=== PATIENT | male | born 1935 | race African-American/Black ===

== ENCOUNTER 2018-09-18 09:00 | Inpatient (IN) | payer MEDICARE ==
[2018-09-18] MEDS ORDERED: Enoxaparin Sodium 100 MG/ML SYRINGE ONE (10:29)
--- NOTE | 2018-09-18 10:30 | ULT ---
EXAM: Bilateral lower extremity venous Doppler PROVIDED CLINICAL HISTORY: Dyspnea FINDINGS: Grayscale and color Doppler sonography with spectral analysis was performed of the common femoral, fe moral, popliteal, posterior tibial, greater saphenous and profunda femoral veins bilaterally. There is noncompressibility involving the left femoral vein and partial noncompressibility involving the po pliteal vein. The evaluated venous structures demonstrate an otherwise normal sonographic appearance. IMPRESSION: Positive for left lower extremity deep venous thrombosis..
[2018-09-18] MEDS ORDERED: predniSONE 20 MG TAB PO SCH (12:30)
[2018-09-18] MEDS ORDERED: Diazepam 5 MG TAB PO PRN (15:32)
[2018-09-18] MEDS ORDERED: Carvedilol 25 MG TAB PO SCH (16:15)
[2018-09-18] MEDS ORDERED: Amlodipine 5 MG TAB PO SCH (16:15)
[2018-09-18] MEDS: Lovastatin 20 MG TAB PO SCH (16:19)
--- NOTE | 2018-09-18 17:04 | CON ---
DATE OF CONSULTATION: 09/18/2018 SERVICE: Pulmonary Medicine. INTERVAL HISTORY: The patient is doing fine from Respiratory standpoint. He came into the hospital, because he had multiple episodes of syncope. He woke up this morning, feeling pretty good. He had increasing lower extremity swelling going on for a couple of days. Last week, he felt like he had a flu-like syndrome. That being said, he completely recovered from that by this morning. He had 3 distinct episodes of complete pass out. As such, he was brought to the Emergency Department by Emergency Services. He denies any current fevers, chills, nausea, vomiting, cough, or sputum production. He is not having any hot, red, swollen joints, or any rashes. He is having increasing swelling in his legs. PAST MEDICAL HISTORY: 1. Chronic kidney disease. 2. Gout. 3. Coronary artery disease. 4. Hypertension. 5. Dyslipidemia. 6. Type 2 diabetes mellitus. 7. Neuropathy. 8. History of transient ischemic attacks. 9. COPD. 10. Chronic hypoxic respiratory failure. PAST SURGICAL HISTORY: 1. Cataract surgery, bilateral. 2. Back surgery. 3. Left shoulder surgery. 4. Right hip replacement. SOCIAL HISTORY: Negative for alcohol, tobacco, or illicit drug use currently. He has no exposure to chemicals, dust, asbestos, or tuberculosis. He has a remote history of smoking, but quit over 10 years ago. FAMILY HISTORY: Noncontributory. ALLERGIES: NO KNOWN DRUG ALLERGIES. MEDICATIONS: List of his inpatient medications as well as outpatient medications were reviewed. He has no specific updates were made at this time. REVIEW OF SYSTEMS: General, head, ears, eyes, nose, throat, cardiovascular, respiratory, GI, , musculoskeletal, neurologic, and skin is negative except as mentioned in the HPI. PHYSICAL EXAMINATION: VITAL SIGNS: Afebrile, pulse 72, respirations 19, and saturation 98% on room air. GENERAL: The patient is awake and alert, in no apparent distress. LUNGS: Reduced air entry. There is a prolonged expiratory phase. I do not appreciate wheezing or crackles. HEART: Normal rate and regular. ABDOMEN: Soft, nontender, and nondistended. Bowel sounds are positive. EXTREMITIES: No cyanosis or clubbing. There is 2+ pitting in the bilateral lower extremities. NEUROLOGIC: Grossly nonfocal. LABORATORY DATA: WBC 6.8, hemoglobin 10.1, and platelets 238,000. Creatinine 3.36 over baseline of 3.1. Basic metabolic profile and liver function studies are otherwise unremarkable. Troponin is negative x1. IMAGING STUDIES: Ultrasound of the bilateral lower extremities demonstrates evidence of DVT. ASSESSMENT: 1. Acute on chronic hypoxic respiratory failure. 2. Deep venous thrombosis. 3. Syncope, multiple episodes, possibly secondary to pulmonary embolism. 4. Chronic obstructive pulmonary disease without current exacerbation. DISCUSSION AND PLAN: We will schedule nebulized medications for the patient. We will put him on anticoagulation. We will repeat laboratories tomorrow morning including a troponin, and BNP. If there is any significant signs of right ventricular heart strain, additional therapies may be considered. Pulmonary/Critical Care will continue to follow very closely while the patient remains inhouse. 70 minutes have been devoted to this patient in various activities. I personally reviewed all imaging studies and laboratory data noted within this document. For fifty percent of this time, I was interacting with the patient at the bedside or coordinating care with the care team. For the remainder of the time I was immediately available to the patient in the hospital unit. Job ID: [id number] [email or web address]
[2018-09-18] MEDS: Carvedilol 25 MG TAB PO SCH (20:44)
[2018-09-18] MEDS: Gabapentin 300 MG CAP PO SCH (20:44)
[2018-09-18] MEDS: Doxycycline 100 MG CAP PO SCH (20:44)
[2018-09-18] MEDS: Apixaban 5 MG TAB PO SCH (20:44)
[2018-09-19] MEDS: Acetaminophen 325 MG TAB PO PRN ×2 (03:26→15:58)
[2018-09-19 04:33] LABS: #Lymphocytes 0.7 thou/uL (1.20-3.40); #Monocytes 0.1 thou/uL (0.11-0.59); #Neutrophils 5.6 thou/uL (1.40-6.50); %Basophils 0.2 % (0.0-1.0); %Eosinophils 0.4 % (0.0-10.0); %Lymphocytes 10.1 % (21.0-51.0); %Monocytes 1.9 % (0.0-10.0); %Neutrophils 87.3 % (42.0-75.0); Hemoglobin 10.7 g/dL (14.0-18.0); Mean Corpuscular HGB CONC 30.1 g/dL (32.0-36.0); Mean Corpuscular Hemoglobin 28.4 pg (27.0-31.0); Mean Corpuscular Volume 94.3 fL (78.0-98.0); Mean Platelet Volume 8.3 fL (7.4-10.4); Platelet Count 204 thou/uL (130-400); RBC Distribution Width 14.2 % (11.5-14.5); Red Blood Cell (RBC) Count 3.77 mill/uL (4.70-6.10); White Blood Cell (WBC) Count 6.4 thou/uL (4.8-10.8)
[2018-09-19 04:54] LABS: Anion Gap 14 mmol/L (10-20); BUN (Urea Nitrogen) 47 mg/dL (8.4-25.7); Calc. Creatinine Clearance 33 mL/min (70-130); Calcium 9.8 mg/dL (7.8-10.44); Carbon Dioxide 27 mmol/L (23-31); Chloride 103 mmol/L (98-107); Estimated GFR-MDRD 31; Glucose 132 mg/dL (83-110); Magnesium 2.3 mg/dL (1.6-2.6); Potassium 4.7 mmol/L (3.5-5.1); Sodium 139 mmol/L (136-145)
[2018-09-19 04:55] LABS: Phosphorus 3.8 mg/dL (2.3-4.7)
[2018-09-19] MEDS: predniSONE 20 MG TAB PO SCH (08:34)
[2018-09-19] MEDS: Apixaban 5 MG TAB PO SCH (08:35)
[2018-09-19] MEDS: Amlodipine 5 MG TAB PO SCH (08:35)
[2018-09-19] MEDS: Aspirin 81 mg Enteric Coated Tablet PO SCH (08:36)
[2018-09-19] MEDS: Calcitriol 0.25 MCG CAP PO SCH (08:36)
[2018-09-19] MEDS: Doxycycline 100 MG CAP PO SCH ×2 (08:36→21:19)
[2018-09-19] MEDS: PARoxetine 20 MG TAB PO SCH (08:36)
[2018-09-19] MEDS: Carvedilol 25 MG TAB PO SCH ×2 (08:36→21:16)
--- NOTE | 2018-09-19 10:09 | HP ---
CHIEF COMPLAINT: Shortness of breath/syncope. HISTORY OF PRESENT ILLNESS: The patient is an 83-year-old male, who resides at home, stated that he woke up around 3:30 on September 19, went to his living room and had a syncopal episode per the patient. The patient states that he is also having gradually shortness of breath on exertion for the past week, which has worsened today. The patient denies any fevers or chills, any chest pain or chest pressure, any nausea, vomiting, or diarrhea. The patient is unable to really tell me if he really syncopized, however, states that when he woke up, he was in the chair. His ex- helped him to the bed and apparently he syncopized again with EMS, however, I do not see any records of that. The patient was brought initially to the [facility] and then was transferred here for further evaluation. In the ED, the patient was found to have an elevated D-dimer for which he did undergo lower extremity ultrasound, which indicated DVT, and was admitted to the hospital. The patient states that he is on Coumadin, however, his INR is 1. I do not believe this patient knows any significant details about his medical history. PAST MEDICAL HISTORY: 1. He has a history of neuropathy. 2. History of chronic renal failure. 3. Gout. 4. Heart disease with stent placement. 5. He is a type 2 diabetic. 6. History of COPD, I believe. PAST SURGICAL HISTORY: 1. The patient has had cataract surgery bilaterally. 2. Back surgery. 3. Right hip surgery. 4. Left shoulder surgery. SOCIAL HISTORY: He denies any alcohol use, drug use, or smoking history. He normally uses cigars. He lives with his ex- and is currently full code. FAMILY HISTORY: No history of heart disease or cancer. ALLERGIES: HE HAS NO KNOWN DRUG ALLERGIES. MEDICATIONS: Medications are as of the following; 1. He is on carvedilol 12.5 b.i.d. 2. Diazepam 5 mg q.24 hours p.r.n. 3. He is on calcitriol 0.5 p.o. daily. 4. Amlodipine 2.5 mg daily. 5. He is on Protonix 40 mg daily. 6. Pravastatin 20 mg daily. REVIEW OF SYSTEMS: All negative except for the ones mentioned above in HPI. PHYSICAL EXAMINATION: VITAL SIGNS: Are as of the following; temperature of 97.6, 71, 16, and 93% on 4 L of oxygen. GENERAL: He is awake, alert, and oriented x3. Does not appear in any distress. HEENT: Normocephalic, atraumatic. No lymphadenopathy noted. Pupils are equal and reactive to light. CV: S1 and S2 present. No murmurs, rubs, or gallops. LUNGS: Clear to auscultation. No rhonchi or wheezes noted. ABDOMEN: Soft and obese. Bowel sounds are present x2. EXTREMITIES: Mild +1 lower extremity edema. Pedal pulses are present bilaterally. NEUROLOGIC: No focal deficits noted. SKIN: No cuts, lesions, or bruises noted. LABORATORY RESULTS: As of the following; the patient's D-dimer was elevated, I believe, at 1.9. His BNP was 390. His troponins were 0.02. His INR was 1.0. His WBCs were 6.6, hemoglobin of 9.8, and hematocrit of 33.6 with platelets of 209. His creatinine was 3.37 and his BUN was 57. IMAGING STUDIES: He also had a lower extremity venogram, which indicated positive left lower extremity DVT, unable to do a CTA due to elevated creatinine. ASSESSMENT AND PLAN: The patient is an 83-year-old male, who comes to the hospital with complaints of shortness of breath. 1. Shortness of breath could be secondary to pulmonary embolism versus acute on chronic heart failure. The patient has never had an echocardiogram here, so we will order an echocardiogram. We will continue anticoagulation on this patient. His troponins x2 were negative. The patient initially was on Ventimask and he has downgraded to oxygen nasal cannula. He normally uses 3 L to 4 L on a regular basis. Also, the patient will be seen by Pulmonary. He does have an underlying history of chronic obstructive pulmonary disease that was mentioned in the notes. The patient was really unable to tell me this information. He is currently on some steroids and also prophylaxis antibiotic. We will also continue DuoNeb on this patient. I will also get records from Dr. Swartz on Thursday. 2. Chronic kidney disease, stage 4. We will continue to monitor. 3. Possible mild heart failure. The patient's BNP was elevated. We will see what the echocardiogram shows may be the patient will benefit from mild diuretic. 4. Hypertension. We will continue his home medications. 5. Hyperlipidemia. We will continue his home medication. 6. Deep venous thrombosis prophylaxis. The patient is already on Eliquis. Job ID: [id number]
[2018-09-19] MEDS ORDERED: Furosemide 40 MG/4 ML VIAL SLOW IVP SCH (11:30)
--- NOTE | 2018-09-19 12:07 | PRG ---
DATE OF SERVICE: 09/19/2018 SERVICE: Pulmonary Medicine. INTERVAL HISTORY: The patient is doing really well from respiratory standpoint. He is breathing comfortably. He has no complaints of chest pain, fevers, cough, nausea, vomiting, or shortness of breath. Overnight, he had no significant events. PHYSICAL EXAMINATION: VITAL SIGNS: Afebrile, pulse 71, blood pressure 150/87, respirations 20, saturation is 97%, currently on 3 L nasal cannula. GENERAL: The patient is awake and alert, in no apparent distress. LUNGS: Decent air entry. There is a decreased air entry. There is a prolonged expiratory phase. Wheezing and crackles are both evident. No rhonchi. HEART: Normal rate, regular. ABDOMEN: Soft, nontender, and nondistended. Bowel sounds are positive. MUSCULOSKELETAL: No cyanosis or clubbing. No pitting in the bilateral lower extremities. NEUROLOGIC: Grossly nonfocal. LABORATORY DATA: Creatinine 2.43, at baseline. Basic metabolic profile is otherwise unremarkable. BNP is 809 and gently uptrending. Troponin is negative. ASSESSMENT: 1. Acute on chronic hypoxic respiratory failure. 2. Deep vein thrombosis. 3. Syncope, multiple episodes, possibly secondary to pulmonary embolism. 4. Chronic obstructive pulmonary disease without current exacerbation. DISCUSSION AND PLAN: The patient can be transitioned out of the ICU to the telemetry unit. I will repeat a BNP tomorrow morning in conjunction with the troponin. As long as these things are downtrending, we will continue our supportive measures. If they are uptrending, a V/Q scan and tPA will be considered. We are awaiting the results of the echocardiogram which has been taken. Job ID: [id number]
[2018-09-19] MEDS: Lovastatin 20 MG TAB PO SCH (15:58)
--- NOTE | 2018-09-19 19:45 | PDOC.PN ---
- Subjective Encounter Start Date: 09/19/18 Encounter Start Time: 08:45 Subjective: pt up in bed no complains - Objective Vital Signs & Weight: Vital Signs (12 hours) Temp Pulse Resp Pulse Ox 09/19/18 19:28 86 20 92 L 09/19/18 15:28 97.8 F 09/19/18 14:14 78 19 94 L 09/19/18 11:09 97.9 F 09/19/18 08:35 71 09/19/18 07:53 71 16 93 L Weight Weight 222 lb 4 oz Most Recent Monitor Data Heart Rate from ECG 81 NIBP 161/97 NIBP BP-Mean 118 Respiration from ECG 15 SpO2 93 I&O: 09/18/18 09/19/18 09/20/18 06:59 06:59 06:59 Intake Total 1330 900 Output Total 1375 1800 Balance -45 -900 Result Diagrams: 09/19/18 03:50 09/19/18 03:50 Additional Labs: Accuchecks 09/19/18 09/19/18 09/19/18 16:45 10:38 05:13 POC Glucose 141 H 188 H 130 H 09/18/18 20:27 POC Glucose 155 H Phys Exam - Physical Examination Neck: no nodes, no JVD, supple, full ROM Respiratory: no wheezing, no rales, no rhonchi, wheezing present, clear to auscultation bilateral Cardiovascular: RRR, no significant murmur, no rub, gallop, irregular Gastrointestinal: soft, non-tender, no distention, positive bowel sounds Dx/Plan (1) SOB (shortness of breath) Code(s): R06.02 - SHORTNESS OF BREATH Status: Acute (2) Dvt femoral (deep venous thrombosis) Code(s): I82.419 - ACUTE EMBOLISM AND THROMBOSIS OF UNSPECIFIED FEMORAL VEIN Status: Acute (3) CAD (coronary artery disease) Code(s): I25.10 - ATHSCL HEART DISEASE OF [place] CORONARY ARTERY W/O ANG PCTRS Status: Acute (4) CKD (chronic kidney disease) stage 4, GFR 15-29 ml/min Code(s): N18.4 - CHRONIC KIDNEY DISEASE, STAGE 4 (SEVERE) Status: Acute - Plan will continue eliquis -: pt on 4L at home -: will get PT to see pt. echo pending * . Review of Systems - Review of Systems Respiratory: Shortness of Breath. negative: Cough, Dry, Hemoptysis, SOB with Excertion, Pleuritic Pain, Sputum, Wheezing Cardiovascular: negative: chest pain, palpitations, orthopnea, paroxysmal nocturnal dyspnea, edema, light headedness, other Gastrointestinal: negative: Nausea, Vomiting, Abdominal Pain, Diarrhea, Constipation, Melena, Hematochezia, Other - Medications/Allergies Allergies/Adverse Reactions: Allergies Allergy/AdvReac Type Severity Reaction Status Date / Time No Known Allergies Allergy Verified 09/18/18 13:13 Medications: Current Medications Acetaminophen (Tylenol) 650 mg PO Q6H PRN PRN Reason: Fever or Pain Last Admin: 09/19/18 15:58 Dose: 650 mg Albuterol/Ipratropium (Duoneb) 3 ml NEB [id number] [facility] Last Admin: 09/19/18 19:28 Dose: 3 ml Amlodipine Besylate (Norvasc) 2.5 mg PO DAILY [facility] Last Admin: 09/19/18 08:35 Dose: 2.5 mg Apixaban (Eliquis) 2.5 mg PO BID [facility] Aspirin (Ecotrin) 81 mg PO DAILY [facility] Last Admin: 09/19/18 08:36 Dose: 81 mg Calcitriol (Rocaltrol) 0.5 mcg PO DAILY [facility] Last Admin: 09/19/18 08:36 Dose: 0.5 mcg Carvedilol (Coreg) 12.5 mg PO BID [facility] Last Admin: 09/19/18 08:36 Dose: 12.5 mg Diazepam (Valium) 5 mg PO Q24H PRN PRN Reason: Anxiety Doxycycline Hyclate (Vibramycin) 100 mg PO BID [facility] Stop: 09/23/18 21:01 Last Admin: 09/19/18 08:36 Dose: 100 mg Gabapentin (Neurontin) 300 mg PO HS [facility] Last Admin: 09/18/18 20:44 Dose: 300 mg Lovastatin (Mevacor) 20 mg PO QPM-WM [facility] Last Admin: 09/19/18 15:58 Dose: 20 mg Pantoprazole Sodium (Protonix) 40 mg PO DAILY [facility] Last Admin: 09/19/18 08:36 Dose: 40 mg Paroxetine HCl (Paxil) 20 mg PO DAILY [facility] Last Admin: 09/19/18 08:36 Dose: 20 mg Prednisone (Prednisone) 40 mg PO QAM-WM [facility] Stop: 09/23/18 08:01 Last Admin: 09/19/18 08:34 Dose: 40 mg
[2018-09-19] MEDS: Gabapentin 300 MG CAP PO SCH (21:19)
[2018-09-19] MEDS: Apixaban 2.5 MG TAB PO SCH (21:19)
[2018-09-20 05:28] LABS: Hemoglobin 10.3 g/dL (14.0-18.0)
[2018-09-20 05:39] LABS: Anion Gap 15 mmol/L (10-20); BUN (Urea Nitrogen) 50 mg/dL (8.4-25.7); Calc. Creatinine Clearance 31 mL/min (70-130); Calcium 9.2 mg/dL (7.8-10.44); Carbon Dioxide 27 mmol/L (23-31); Chloride 99 mmol/L (98-107); Estimated GFR-MDRD 29; Glucose 105 mg/dL (83-110); Potassium 4.4 mmol/L (3.5-5.1); Sodium 137 mmol/L (136-145)
[2018-09-20 05:44] LABS: Troponin I 0.045 ng/mL (< 0.028)
[2018-09-20] MEDS: Calcitriol 0.25 MCG CAP PO SCH (08:17)
[2018-09-20] MEDS: PARoxetine 20 MG TAB PO SCH (08:17)
[2018-09-20] MEDS: Acetaminophen 325 MG TAB PO PRN (08:17)
[2018-09-20] MEDS: Doxycycline 100 MG CAP PO SCH ×2 (08:17→21:27)
[2018-09-20] MEDS: Aspirin 81 mg Enteric Coated Tablet PO SCH (08:17)
[2018-09-20] MEDS: Carvedilol 25 MG TAB PO SCH ×2 (08:17→21:27)
[2018-09-20] MEDS: predniSONE 20 MG TAB PO SCH (08:18)
[2018-09-20] MEDS: Amlodipine 5 MG TAB PO SCH (08:18)
[2018-09-20] MEDS: Apixaban 2.5 MG TAB PO SCH ×2 (08:35→21:26)
--- NOTE | 2018-09-20 12:49 | PRG ---
DATE OF SERVICE: 09/20/2018 SERVICE: Pulmonary Medicine. INTERVAL HISTORY: The patient is doing really well from respiratory standpoint. He is breathing comfortably. He does not have any chest discomfort. He otherwise indicates he is returning to his usual state of health. There were no significant overnight events. PHYSICAL EXAMINATION: VITAL SIGNS: Afebrile, pulse 73, blood pressure 156/98, respirations 16, and saturation 100% on 4 L nasal cannula. GENERAL: The patient is awake and alert, in no apparent distress. LUNGS: Decreased air entry with a prolonged expiratory phase. No crackles are present dependently. There is no wheezing today. HEART: Normal rate and regular. ABDOMEN: Soft, nontender, and nondistended. Bowel sounds are positive. MUSCULOSKELETAL: No cyanosis or clubbing. No pitting in the bilateral lower extremities. NEUROLOGIC: Grossly nonfocal. LABORATORY DATA: Hemoglobin 10.3, creatinine 2.59 and roughly stable. Basic metabolic profile is otherwise unremarkable. BNP 619 and gently downtrending, troponin 0.045. IMAGING STUDIES: Echocardiogram shows normal ejection fraction. There is diastolic dysfunction. There is a moderately enlarged right ventricle. Mild mitral regurgitation is present. ASSESSMENT: 1. Acute hypoxic respiratory failure, improving. 2. Deep venous thrombosis. 3. Syncope, multiple episodes, likely secondary to pulmonary embolism. 4. Chronic obstructive pulmonary disease with mild exacerbation. DISCUSSION AND PLAN: The patient is stable for transition out of the ICU to the telemetry unit. He will need lifelong anticoagulation for the venothromboembolic event that he has had. I will repeat a BNP and troponin tomorrow morning to make certain that his right ventricular heart strain continues to improve. Given findings on echocardiogram in clinical presentation, it is very likely the patient suffered from a submassive pulmonary embolism. Pulmonary/Critical Care will continue to follow along while he remains in-house. Job ID: [id number]
[2018-09-20] MEDS: Lovastatin 20 MG TAB PO SCH (16:46)
--- NOTE | 2018-09-20 17:58 | PDOC.PN ---
- Subjective Encounter Start Date: 09/20/18 Encounter Start Time: 11:15 Subjective: pt up in bed no complains - Objective Vital Signs & Weight: Vital Signs (12 hours) Temp Pulse Pulse Pulse BP BP Pulse Ox 09/20/18 15:06 97.8 F 09/20/18 09:57 73 74 156/98 H 175/100 H 09/20/18 08:18 75 09/20/18 08:10 94 L 09/20/18 08:00 95 09/20/18 07:06 97.2 F L Pulse Ox Pulse Ox 09/20/18 15:06 09/20/18 09:57 99 95 09/20/18 08:18 09/20/18 08:10 09/20/18 08:00 09/20/18 07:06 Weight Weight 217 lb 14.4 oz Most Recent Monitor Data Heart Rate from ECG 69 NIBP 173/103 NIBP BP-Mean 126 Respiration from ECG 17 SpO2 99 I&O: 09/19/18 09/20/18 09/21/18 06:59 06:59 06:59 Intake Total 1330 1500 Output Total 1375 1801 Balance -45 -301 Result Diagrams: 09/20/18 04:39 09/20/18 04:39 Additional Labs: Accuchecks 09/20/18 09/20/18 09/19/18 16:31 10:02 21:15 POC Glucose 170 H 101 156 H Phys Exam - Physical Examination Neck: no nodes, no JVD, supple, full ROM Respiratory: no wheezing, no rales, no rhonchi, wheezing present, clear to auscultation bilateral Cardiovascular: RRR, no significant murmur, no rub, gallop, irregular Gastrointestinal: soft, non-tender, no distention, positive bowel sounds Musculoskeletal: no edema, pulses present, edema present Dx/Plan (1) SOB (shortness of breath) Code(s): R06.02 - SHORTNESS OF BREATH Status: Acute (2) Dvt femoral (deep venous thrombosis) Code(s): I82.419 - ACUTE EMBOLISM AND THROMBOSIS OF UNSPECIFIED FEMORAL VEIN Status: Acute (3) CAD (coronary artery disease) Code(s): I25.10 - ATHSCL HEART DISEASE OF [place] CORONARY ARTERY W/O ANG PCTRS Status: Acute (4) CKD (chronic kidney disease) stage 4, GFR 15-29 ml/min Code(s): N18.4 - CHRONIC KIDNEY DISEASE, STAGE 4 (SEVERE) Status: Acute - Plan pt feels much better, he does have a right dilated ventricle -: will continue eliquis for now -: PT to evaluate pt, he is on 4L of oxygen at home -: will titrate his bp meds, pt's trops are elevated -: will get echo from dr aguila's office * . Review of Systems - Review of Systems Respiratory: negative: Cough, Dry, Shortness of Breath, Hemoptysis, SOB with Excertion, Pleuritic Pain, Sputum, Wheezing Cardiovascular: negative: chest pain, palpitations, orthopnea, paroxysmal nocturnal dyspnea, edema, light headedness, other Gastrointestinal: negative: Nausea, Vomiting, Abdominal Pain, Diarrhea, Constipation, Melena, Hematochezia, Other - Medications/Allergies Allergies/Adverse Reactions: Allergies Allergy/AdvReac Type Severity Reaction Status Date / Time No Known Allergies Allergy Verified 09/18/18 13:13 Medications: Current Medications Acetaminophen (Tylenol) 650 mg PO Q6H PRN PRN Reason: Fever or Pain Last Admin: 09/20/18 08:17 Dose: 650 mg Albuterol/Ipratropium (Duoneb) 3 ml NEB [id number] PRN PRN Reason: SOB &/or Wheezing Amlodipine Besylate (Norvasc) 2.5 mg PO DAILY [facility] Last Admin: 09/20/18 08:18 Dose: 2.5 mg Apixaban (Eliquis) 2.5 mg PO BID [facility] Last Admin: 09/20/18 08:35 Dose: 2.5 mg Aspirin (Ecotrin) 81 mg PO DAILY [facility] Last Admin: 09/20/18 08:17 Dose: 81 mg Calcitriol (Rocaltrol) 0.5 mcg PO DAILY [facility] Last Admin: 09/20/18 08:17 Dose: 0.5 mcg Carvedilol (Coreg) 12.5 mg PO BID [facility] Last Admin: 09/20/18 08:17 Dose: 12.5 mg Diazepam (Valium) 5 mg PO Q24H PRN PRN Reason: Anxiety Doxycycline Hyclate (Vibramycin) 100 mg PO BID [facility] Stop: 09/23/18 21:01 Last Admin: 09/20/18 08:17 Dose: 100 mg Gabapentin (Neurontin) 300 mg PO [facility] Last Admin: 09/19/18 21:19 Dose: 300 mg Lovastatin (Mevacor) 20 mg PO Q-[facility] Last Admin: 09/20/18 16:46 Dose: 20 mg Pantoprazole Sodium (Protonix) 40 mg PO DAILY [facility] Last Admin: 09/20/18 08:18 Dose: 40 mg Paroxetine HCl (Paxil) 20 mg PO DAILY [facility] Last Admin: 09/20/18 08:17 Dose: 20 mg Prednisone (Prednisone) 40 mg PO QA-[facility] Stop: 09/23/18 08:01 Last Admin: 09/20/18 08:18 Dose: 40 mg
[2018-09-20] MEDS ORDERED: Furosemide 40 MG/4 ML VIAL SLOW IVP SCH (18:00)
[2018-09-20] MEDS ORDERED: Amlodipine 5 MG TAB PO SCH (18:00)
[2018-09-20 18:55] LABS: Troponin I Less than 0.010 ng/mL (< 0.028)
[2018-09-20] MEDS: Gabapentin 300 MG CAP PO SCH (21:27)
[2018-09-21 05:42] LABS: Anion Gap 13 mmol/L (10-20); BUN (Urea Nitrogen) 51 mg/dL (8.4-25.7); Calc. Creatinine Clearance 32 mL/min (70-130); Calcium 9.6 mg/dL (7.8-10.44); Carbon Dioxide 29 mmol/L (23-31); Chloride 99 mmol/L (98-107); Estimated GFR-MDRD 30; Glucose 104 mg/dL (83-110); Potassium 4.3 mmol/L (3.5-5.1); Sodium 137 mmol/L (136-145)
[2018-09-21 06:43] VITALS: BMI 27.6
[2018-09-21] MEDS: PARoxetine 20 MG TAB PO SCH (09:10)
[2018-09-21] MEDS: Doxycycline 100 MG CAP PO SCH ×2 (09:10→21:53)
[2018-09-21] MEDS: Calcitriol 0.25 MCG CAP PO SCH (09:11)
[2018-09-21] MEDS: Lisinopril 20 MG TAB PO SCH (09:11)
[2018-09-21] MEDS: Amlodipine 10 MG TAB PO SCH (09:11)
[2018-09-21] MEDS: predniSONE 20 MG TAB PO SCH (09:12)
[2018-09-21] MEDS: Carvedilol 25 MG TAB PO SCH ×2 (09:12→21:53)
[2018-09-21] MEDS: Apixaban 2.5 MG TAB PO SCH ×2 (09:12→21:53)
[2018-09-21] MEDS: Aspirin 81 mg Enteric Coated Tablet PO SCH (09:13)
[2018-09-21 09:14] LABS: Troponin I 0.033 ng/mL (< 0.028)
--- NOTE | 2018-09-21 14:45 | PDOC.PN ---
- Subjective Encounter Start Date: 09/21/18 Encounter Start Time: 11:45 Subjective: pt up in bed no complains - Objective Vital Signs & Weight: Vital Signs (12 hours) Temp Pulse BP Pulse Ox 09/21/18 10:33 98.0 F 09/21/18 09:11 82 160/110 H 09/21/18 08:00 98 09/21/18 07:12 97.4 F L 09/21/18 03:58 98.9 F Weight Weight 214 lb 15.211 oz Most Recent Monitor Data Heart Rate from ECG 67 NIBP 102/70 NIBP BP-Mean 80 Respiration from ECG 17 SpO2 96 I&O: 09/20/18 09/21/18 09/22/18 06:59 06:59 06:59 Intake Total 1500 410 Output Total 1801 275 Balance -301 135 Result Diagrams: 09/20/18 04:39 09/21/18 04:56 Additional Labs: Accuchecks 09/21/18 09/21/18 09/20/18 10:08 05:35 19:45 POC Glucose 146 H 99 178 H 09/20/18 09/20/18 16:31 05:12 POC Glucose 170 H 94 Phys Exam - Physical Examination Neck: no nodes, no JVD, supple, full ROM Respiratory: no wheezing, no rales, no rhonchi, wheezing present, clear to auscultation bilateral Cardiovascular: RRR, no significant murmur, no rub, gallop, irregular Gastrointestinal: soft, non-tender, no distention, positive bowel sounds Musculoskeletal: no edema, pulses present, edema present Dx/Plan (1) SOB (shortness of breath) Code(s): R06.02 - SHORTNESS OF BREATH Status: Acute (2) Dvt femoral (deep venous thrombosis) Code(s): I82.419 - ACUTE EMBOLISM AND THROMBOSIS OF UNSPECIFIED FEMORAL VEIN Status: Acute (3) CAD (coronary artery disease) Code(s): I25.10 - ATHSCL HEART DISEASE OF [place] CORONARY ARTERY W/O ANG PCTRS Status: Acute (4) CKD (chronic kidney disease) stage 4, GFR 15-29 ml/min Code(s): N18.4 - CHRONIC KIDNEY DISEASE, STAGE 4 (SEVERE) Status: Acute - Plan pt's trop increased again, not sure if this is due to his -: uncontrolled bp vs submassive PE. unable to do a CTA due to -: elevated creatinine. will continue eliquis for now and i have added -: bp meds for better control. will get last echo from dr aguila's office * . Review of Systems - Review of Systems Respiratory: negative: Cough, Dry, Shortness of Breath, Hemoptysis, SOB with Excertion, Pleuritic Pain, Sputum, Wheezing Cardiovascular: negative: chest pain, palpitations, orthopnea, paroxysmal nocturnal dyspnea, edema, light headedness, other Gastrointestinal: negative: Nausea, Vomiting, Abdominal Pain, Diarrhea, Constipation, Melena, Hematochezia, Other - Medications/Allergies Allergies/Adverse Reactions: Allergies Allergy/AdvReac Type Severity Reaction Status Date / Time No Known Allergies Allergy Verified 09/18/18 13:13 Medications: Current Medications Acetaminophen (Tylenol) 650 mg PO Q6H PRN PRN Reason: Fever or Pain Last Admin: 09/20/18 08:17 Dose: 650 mg Albuterol/Ipratropium (Duoneb) 3 ml NEB [id number] PRN PRN Reason: SOB &/or Wheezing Amlodipine Besylate (Norvasc) 10 mg PO DAILY [facility] Last Admin: 09/21/18 09:11 Dose: 10 mg Apixaban (Eliquis) 2.5 mg PO BID [facility] Last Admin: 09/21/18 09:12 Dose: 2.5 mg Aspirin (Ecotrin) 81 mg PO DAILY [facility] Last Admin: 09/21/18 09:13 Dose: 81 mg Calcitriol (Rocaltrol) 0.5 mcg PO DAILY [facility] Last Admin: 09/21/18 09:11 Dose: 0.5 mcg Carvedilol (Coreg) 25 mg PO BID [facility] Last Admin: 09/21/18 09:12 Dose: 25 mg Diazepam (Valium) 5 mg PO Q24H PRN PRN Reason: Anxiety Doxycycline Hyclate (Vibramycin) 100 mg PO BID [facility] Stop: 09/23/18 21:01 Last Admin: 09/21/18 09:10 Dose: 100 mg Gabapentin (Neurontin) 300 mg PO HS [facility] Last Admin: 09/20/18 21:27 Dose: 300 mg Lisinopril (Zestril) 20 mg PO DAILY [facility] Last Admin: 09/21/18 09:11 Dose: 20 mg Lovastatin (Mevacor) 20 mg PO QPM[facility] Last Admin: 09/20/18 16:46 Dose: 20 mg Pantoprazole Sodium (Protonix) 40 mg PO DAILY [facility] Last Admin: 09/21/18 09:10 Dose: 40 mg Paroxetine HCl (Paxil) 20 mg PO DAILY [facility] Last Admin: 09/21/18 09:10 Dose: 20 mg Prednisone (Prednisone) 40 mg PO QA-[facility] Stop: 09/23/18 08:01 Last Admin: 09/21/18 09:12 Dose: 40 mg
--- NOTE | 2018-09-21 17:04 | PRG ---
DATE OF SERVICE: 09/21/2018 SERVICE: Pulmonary Service. INTERVAL HISTORY: The patient is doing really well from a respiratory standpoint. He has no complaints of chest pain, nausea, vomiting, fevers, or chills. Otherwise, he remains in his usual state of health without any complaints. PHYSICAL EXAMINATION: VITAL SIGNS: Afebrile, pulse 71, blood pressure 158/88, respirations 18, and saturation 95% on 2 L nasal cannula. GENERAL: The patient is awake and alert, in no apparent distress. LUNGS: Reduced air entry. Not much of a prolonged expiratory phase is present. There are no wheezing or rhonchi appreciated. HEART: Normal rate. Regular. ABDOMEN: Soft, nontender, and nondistended. Bowel sounds are positive. MUSCULOSKELETAL: No cyanosis or clubbing. Trace pitting in the bilateral lower extremities is present. NEUROLOGIC: Grossly nonfocal. LABORATORY DATA: Creatinine 2.50, this is stable. BUN is 51 and stable. Basic metabolic profile is otherwise unremarkable. Troponin is 0.033. BNP 619 and downtrending. ASSESSMENT: 1. Acute hypoxic respiratory failure, improving. 2. Deep venous thrombosis. 3. Syncope, multiple episodes, likely secondary to pulmonary emboli. 4. Chronic obstructive pulmonary disease with mild exacerbation. DISCUSSION AND PLAN: The patient is clearly moving in the right direction. At this point, he is stable for transition out of the hospital provided that he continues taking his anticoagulation through time. He would benefit from a formal dementia screen in the outpatient setting as my suspicion is that he is having some increasing cognitive impairment. There were multiple inconsistencies in his story, he frequently finds the wrong word. This may be part of our long-term problem. I will continue to follow for the time being, but from my perspective, he is back to baseline and can be considered for transition to home. halfway placement would be reasonable if the patient were amenable to this type of a transition. Job ID: [id number]
[2018-09-21] MEDS: Lovastatin 20 MG TAB PO SCH (18:11)
[2018-09-21] MEDS: Gabapentin 300 MG CAP PO SCH (21:53)
[2018-09-22] MEDS ORDERED: Carvedilol 6.25 MG TAB PO SCH (09:00)
[2018-09-22] MEDS: Calcitriol 0.25 MCG CAP PO SCH (09:44)
[2018-09-22] MEDS: Doxycycline 100 MG CAP PO SCH (09:44)
[2018-09-22] MEDS: Lisinopril 20 MG TAB PO SCH (09:45)
[2018-09-22] MEDS: PARoxetine 20 MG TAB PO SCH (09:45)
[2018-09-22] MEDS: predniSONE 20 MG TAB PO SCH (09:45)
[2018-09-22] MEDS: Aspirin 81 mg Enteric Coated Tablet PO SCH (09:46)
[2018-09-22] MEDS: Apixaban 2.5 MG TAB PO SCH (09:46)
[2018-09-22] MEDS: Amlodipine 10 MG TAB PO SCH (09:46)
[2018-09-22 09:47] VITALS: BP 137/82
--- NOTE | 2018-09-22 12:38 | PRG ---
DATE OF SERVICE: 09/22/2018 SERVICE: Pulmonary Medicine. INTERVAL HISTORY: The patient is doing really well from respiratory standpoint. Breathing comfortably. He has no complaints of chest pain, fevers, cough, nausea, or vomiting. Otherwise, there has been no interval change to his condition. PHYSICAL EXAMINATION: VITAL SIGNS: Afebrile, pulse 82, blood pressure 145/88, respirations 17, and saturation 100% on 1L nasal cannula. GENERAL: The patient is awake and alert, in no apparent distress. LUNGS: Very good air entry. There is a prolonged expiratory phase. There is minimal dependent crackles present. HEART: Normal rate, regular. ABDOMEN: Soft, nontender, and nondistended. Bowel sounds are positive. MUSCULOSKELETAL: No cyanosis or clubbing. No pitting in bilateral lower extremities. NEUROLOGIC: Grossly nonfocal. ASSESSMENT: 1. [id number] hypoxic respiratory failure, resolved to baseline. 2. Deep vein thrombosis. 3. Syncopal events, multiple, likely secondary to pulmonary emboli. 4. Chronic obstructive pulmonary disease with mild exacerbation. DISCUSSION AND PLAN: From purely respiratory perspective, the patient is stable for transition out of the hospital. If he remains in the IMCU, I will continue to follow, but when he leaves this location, he will have no further requirements for inpatient Pulmonary/Critical Care opinion, and I will sign off. Please call with additional questions or concerns through time. Job ID: [id number]
[2018-09-22 15:02] VITALS: TEMP 97.1
[2018-09-22] MEDS ORDERED: Warfarin Sodium 2.5 MG TAB PO SCH ×2 (17:00)
[2018-09-22] MEDS ORDERED: Enoxaparin Sodium 80 MG/0.8 ML SYRINGE SC SCH (17:15)
[2018-09-22] MEDS: Lovastatin 20 MG TAB PO SCH (17:16)
[2018-09-23] MEDS ORDERED: Enoxaparin Sodium 80 MG/0.8 ML SYRINGE SC SCH (09:00)
--- NOTE | 2018-09-24 09:04 | EKG ---
Test Reason : SOB Blood Pressure : / mmHG Vent. Rate : 081 BPM Atrial Rate : 081 BPM P-R Int : 162 ms QRS Dur : 092 ms QT Int : 416 ms P-R-T Axes : 073 -84 046 degrees QTc Int : 483 ms Normal sinus rhythm Left axis deviation Inferior infarct , age undetermined Abnormal ECG Confirmed by ANAMARIA RICE DO ([id number]), social media editor JAMES AMEZQUITA ([id number]) on 09/24/2018 9:04:13 AM Referred By: Confirmed By:ANAMARIA RICE DO
== END 2018-09-22 18:20 | disposition home or self-care (01) | DRG 175 ==
LOC: ERS 09:00 → IMCU/EMU 10:52
PROVIDERS: ADMIT Internal Medicine; ATTEND Internal Medicine
DX: I26.99 Other pulmonary embolism without acute cor pulmonale (principal); J96.21 Acute and chronic respiratory failure with hypoxia; N18.4 Chronic kidney disease, stage 4 (severe); I82.412 Acute embolism and thrombosis of left femoral vein; E78.5 Hyperlipidemia, unspecified; M19.90 Unspecified osteoarthritis, unspecified site; M10.9 Gout, unspecified; I25.10 Atherosclerotic heart disease of native coronary artery without angina pectoris; J44.9 Chronic obstructive pulmonary disease, unspecified; E11.22 Type 2 diabetes mellitus with diabetic chronic kidney disease; I12.9 Hypertensive chronic kidney disease with stage 1 through stage 4 chronic kidney disease, or unspecified chronic kidney disease; E11.40 Type 2 diabetes mellitus with diabetic neuropathy, unspecified; Z79.899 Other long term (current) drug therapy; Z87.891 Personal history of nicotine dependence; Z79.51 Long term (current) use of inhaled steroids; Z79.82 Long term (current) use of aspirin
CPT/HCPCS: 36415; 36416; 80048; 83735; 83880; 84100; 84484; 85014; 85018; 85025; 93005; 93306; 93970; 94640; 96372; J1650; J1940; J7512; J7620

== ENCOUNTER 2018-09-29 12:48 | Outpatient (CLI) | payer MEDICARE ==
--- NOTE | 2018-09-29 14:49 | RAD ---
PA AND LATERAL CHEST X-RAY: 09/29/18 HISTORY: Dyspnea. COMPARISON: 07/22/16. FINDINGS: Cardiac silhouette and pulmonary vasculature are within normal limits. There is increased density in the right infrahilar region most likely related to vascular structures. However, there are increased linear densities at the right lung base, also seen on the prior exam and related to mild scarring. Th ere does appear to be mild emphysematous changes within the upper lobes, greater on the right. Most i nferior aspect of the right lateral costophrenic angle is partially obscured. No new area of consolid ation or pleural fluid is seen. The chest is otherwise stable compared to the prior exam. Mild degene rative changes are seen in the spine. IMPRESSION: 1. Mild chronic lung changes and findings suggestive of COPD. 2. No acute cardiopulmonary process. POS: [facility]
== END 2018-09-29 12:49 | disposition home or self-care (01) ==
LOC: RAD 12:48
PROVIDERS: ATTEND Internal Medicine Pulmonary Disease
DX: R06.00 Dyspnea, unspecified (principal)
CPT/HCPCS: 71046